=== PATIENT | male | born 1955 | race Caucasian/White ===

== ENCOUNTER 2025-07-03 22:45 | Emergency (ER) | payer MEDICAID, MEDICARE ==
[2025-07-03] MEDS: Bacitracin Oint 1 GM U/D Packet TOP ONE (23:51)
== END 2025-07-03 23:59 | disposition home or self-care (01) ==
LOC: JP.ED 22:45
DX: S60.351A Superficial foreign body of right thumb, initial encounter (principal); Z88.0 Allergy status to penicillin; Z88.8 Allergy status to other drugs, medicaments and biological substances; Z88.1 Allergy status to other antibiotic agents; Z88.2 Allergy status to sulfonamides; W45.8XXA Other foreign body or object entering through skin, initial encounter; Y93.89 Activity, other specified
CPT/HCPCS: 99283; J2003